=== PATIENT | male | born 1945 | race Two or more races ===

== ENCOUNTER 2018-02-04 07:28 | Inpatient (IN) | payer MEDICARE, OTHER, MEDICAID ==
[2018-02-04] MEDS: POLYMYXIN/BACITRACIN 1L IRRIG
[2018-02-04] MEDS ORDERED: MIDAZOLAM 1 MG/ML 2 ML INJ (07:41)
[2018-02-04] MEDS ORDERED: CEFAZOLIN 1 GM INJ (07:41)
[2018-02-04] MEDS ORDERED: PROPOFOL 20 ML (07:41)
[2018-02-04] MEDS ORDERED: ROPIVACAINE 0.5 % 30 ML VIAL (07:42)
[2018-02-04] MEDS ORDERED: LABETALOL HCL 20MG INJ IV (08:00)
[2018-02-04] MEDS ORDERED: DIPHENHYDRAMINE 50 MG INJ IV (08:00)
[2018-02-04] MEDS ORDERED: MEPERIDINE 25 MG INJ IV (08:00)
[2018-02-04] MEDS ORDERED: FENTAnyl 50 MCG/ML VIAL IV ×3 (08:00)
[2018-02-04] MEDS ORDERED: hydrALAzine 20 MG INJ IV (08:00)
[2018-02-04] MEDS ORDERED: OXYCODONE/ACETAMINOPHEN (5/325) TAB PO ×2 (08:00)
[2018-02-04] MEDS ORDERED: EPHEDrine SULFATE 50 MG/5 ML SYG IV (08:00)
[2018-02-04] MEDS ORDERED: METOCLOPRAMIDE 10 MG INJ IV (08:00)
[2018-02-04] MEDS ORDERED: HYDROmorphONE (0.2 MG/ML) 10ML SYG IV ×3 (08:00)
[2018-02-04] MEDS ORDERED: ONDANSETRON 4 MG INJ IV ×2 (08:00→14:30)
[2018-02-04 09:32] LABS: POTASSIUM 5.3 mmol/L (3.5-5.1)
[2018-02-04] MEDS ORDERED: PHENYLephrine (100 MCG/ML) 5ML SYG (10:03)
[2018-02-04] MEDS ORDERED: DEXAMETHASONE 4 MG/ML 1 ML INJ (10:19)
[2018-02-04] MEDS ORDERED: METOCLOPRAMIDE 10 MG INJ (10:19)
[2018-02-04] MEDS ORDERED: ONDANSETRON 4 MG INJ (10:19)
[2018-02-04] MEDS ORDERED: NALOXONE (0.4 MG/ML) INJ (10:45)
[2018-02-04] MEDS ORDERED: HYDROCODONE/APAP (5/325) TAB PO (14:30)
[2018-02-04] MEDS ORDERED: ACETAMINOPHEN 325 MG TAB PO (14:30)
[2018-02-04] MEDS ORDERED: NACL 0.9% 3 ML SYG IV (14:30)
[2018-02-04] MEDS ORDERED: morphine LIQ (10 MG/5 ML) CUP PO (14:30)
[2018-02-04] MEDS ORDERED: ZOLPIDEM 5 MG TAB PO (14:30)
[2018-02-04] MEDS ORDERED: DEXTROSE 50% 50 ML SYRINGE IV ×2 (15:00)
[2018-02-04] MEDS ORDERED: GLUCOSE GEL 15 GRAM TUBE PO ×2 (15:00)
[2018-02-04] MEDS ORDERED: GLUCAGON 1 MG INJ IM (15:00)
[2018-02-04] MEDS ORDERED: GLUCOSE GEL 15 GRAM TUBE BUCCAL (15:00)
[2018-02-04] MEDS: CALCIUM ACETATE 667 MG CAP PO (17:33)
[2018-02-04] MEDS: INSULIN ASPART [NOVOLOG] 3 ML PEN SC ×2 (17:41)
[2018-02-04] MEDS ORDERED: ATORVASTATIN 80 MG TAB PO (21:00)
[2018-02-04] MEDS ORDERED: INSULIN GLARGINE [LANtus] 3 ML PEN SC (21:00)
[2018-02-04] MEDS ORDERED: TAMSULOSIN (SR) 0.4 MG CAP PO (21:00)
[2018-02-05] MEDS ORDERED: ACCU-CHEK XX (02:00)
[2018-02-05] MEDS ORDERED: PANTOPRAZOLE (EC) 40 MG TAB PO (06:00)
[2018-02-05] MEDS ORDERED: ASPIRIN (EC) 81 MG TAB PO (09:00)
[2018-02-05] MEDS ORDERED: GABAPENTIN 300 MG CAP PO (09:00)
[2018-02-05] MEDS ORDERED: DOCUSATE SODIUM 100 MG CAP PO (09:00)
[2018-02-05] MEDS ORDERED: ALLOPURINOL 100 MG TAB PO (09:00)
[2018-02-05] MEDS ORDERED: MULTIVIT/CA CARB/B CMPLX/FA TAB PO (09:00)
[2018-02-05] MEDS ORDERED: CHOLECALCIFEROL 1,000 UNIT TAB PO (09:00)
[2018-02-05] MEDS ORDERED: CLOPIDOGREL 75 MG TAB PO (09:00)
[2018-02-05] MEDS ORDERED: ENOXAPARIN 40 MG/0.4 ML SYG SC (09:00)
[2018-02-05] MEDS ORDERED: FINASTERIDE 5 MG TAB PO (09:00)
[2018-02-05] MEDS ORDERED: FOLIC ACID 1 MG TAB PO (09:00)
== END 2018-02-04 19:05 | DRG 240 ==
LOC: SDS 07:28 → REC 12:42 → MS2 12:55
PROVIDERS: Internal Medicine
PROC: 0Y6M0Z9 Detachment at Right Foot, Partial 1st Ray, Open Approach (ICD-10-PCS; principal; 2018-02-04 07:30)
PROC: 0Y6M0ZB Detachment at Right Foot, Partial 2nd Ray, Open Approach (ICD-10-PCS; 2018-02-04 07:30)
PROC: 0Y6M0ZC Detachment at Right Foot, Partial 3rd Ray, Open Approach (ICD-10-PCS; 2018-02-04 07:30)
PROC: 0Y6M0ZD Detachment at Right Foot, Partial 4th Ray, Open Approach (ICD-10-PCS; 2018-02-04 07:30)
PROC: 0Y6M0ZF Detachment at Right Foot, Partial 5th Ray, Open Approach (ICD-10-PCS; 2018-02-04 07:30)
DX: E11.52 Type 2 diabetes mellitus with diabetic peripheral angiopathy with gangrene (principal); I96 Gangrene, not elsewhere classified; Z95.1 Presence of aortocoronary bypass graft; Z95.0 Presence of cardiac pacemaker; Z87.891 Personal history of nicotine dependence
CPT/HCPCS: 82962; 84132; 88307; 97163

== ENCOUNTER 2018-07-10 16:28 | Inpatient (IN) | payer MEDICARE, OTHER ==
[2018-07-10] MEDS: NA POLYST SULFON 15 GM/60 ML BTL PO (18:00)
[2018-07-10 18:29] LABS: ADD MAN DIFF? NO
[2018-07-10 18:38] LABS: WHITE BLOOD COUNT 10.2 10^3/ul (4.8-10.8)
[2018-07-10 18:38] LABS: ABNORMAL IP MESSAGE 1; BASOPHIL # 0.1 10^3/ul (0.0-0.1); BASOPHILS % 0.5 % (0.0-2.0); HEMATOCRIT 37.7 % (42.0-52.0); HEMOGLOBIN 12.1 g/dl (14.0-18.0); LYMPHOCYTES # 1.6 10^3/ul (0.8-2.9); LYMPHOCYTES % 15.7 % (15.0-51.0); MEAN CORPUSCULAR HEMOGLOBIN 29.4 pg (29.0-33.0); MEAN CORPUSCULAR HGB CONC 32.1 g/dl (32.0-37.0); MEAN CORPUSCULAR VOLUME 91.5 fl (82.0-101.0); MEAN PLATELET VOLUME 10.7 fl (7.4-10.4); MONOCYTE # 1.6 10^3/ul (0.3-0.9); MONOCYTES % 15.4 % (0.0-11.0); NEUTROPHIL # 6.9 10^3/ul (1.6-7.5); PLATELET COUNT 263 10^3/UL (140-415); POSITIVE DIFF @See below; RED BLOOD COUNT 4.12 10^6/ul (4.70-6.10); RED CELL DISTRIBUTION WIDTH 15.7 % (11.5-14.5)
[2018-07-10 18:52] LABS: INR 1.02; PROTIME 13.5 Sec (11.9-14.9); PT RATIO 1.1
[2018-07-10 18:53] LABS: PARTIAL THROMBOPLASTIN TIME 31.5 Sec (23.0-35.0)
[2018-07-10] MEDS: PIPER-TAZO 3.375 GM IV (PMX) 100 ML IVPB (18:53)
[2018-07-10 19:02] LABS: ANION GAP 25 (5-13); CALCIUM 10.3 mg/dl (8.4-10.2); CARBON DIOXIDE 18 mmol/L (21-31); CHLORIDE 91 mmol/L (97-110); CREATININE 13.02 mg/dl (0.61-1.24); GLUCOSE 256 mg/dl (70-220); SODIUM 134 mmol/L (135-144)
[2018-07-10 19:13] LABS: BLOOD UREA NITROGEN 123 mg/dl (7-20); POTASSIUM 7.2 mmol/L (3.5-5.1); TROPONIN-I 0.027 ng/ml (0.000-0.120)
[2018-07-10] MEDS ORDERED: ACETAMINOPHEN 325 MG TAB PO ×2 (19:30→21:00)
[2018-07-10] MEDS ORDERED: ONDANSETRON 4 MG INJ IV ×2 (19:30→21:00)
[2018-07-10] MEDS: NA BICARBONATE 8.4% 50 ML SYG IV (19:40)
[2018-07-10] MEDS: INSULIN REGULAR, HUMAN 100 UNIT/1 ML 3ML VIAL IVP (19:50)
[2018-07-10] MEDS: VANCOMYCIN 1 GM (PMX) 250 ML IVPB (19:53)
[2018-07-10] MEDS: ALBUTEROL 0.5% (NEB) 2.5 MG/0.5 ML AMP INH (20:21)
[2018-07-10] MEDS ORDERED: ALBUTEROL/IPRATROPIUM (NEB) 3 ML AMP HHN (21:00)
[2018-07-10] MEDS ORDERED: NACL 0.9% 3 ML SYG IV (21:00)
[2018-07-10] MEDS: DEXTROSE 50% 50 ML SYRINGE IV (21:00)
[2018-07-10] MEDS ORDERED: INSULIN GLARGINE [LANTus] (100 UNITS/ML) SYG SC (23:00)
[2018-07-10] MEDS ORDERED: GLUCAGON 1 MG INJ IM (23:00)
[2018-07-10] MEDS ORDERED: GLUCOSE GEL 15 GRAM TUBE BUCCAL (23:00)
[2018-07-10] MEDS ORDERED: GLUCOSE GEL 15 GRAM TUBE PO ×2 (23:00)
[2018-07-10] MEDS ORDERED: DEXTROSE 50% 50 ML SYRINGE IV ×2 (23:00)
[2018-07-10] MEDS: HYDROCODONE/APAP (5/325) TAB PO (23:12)
[2018-07-10] MEDS: TAMSULOSIN (SR) 0.4 MG CAP PO (23:12)
[2018-07-10 23:42] LABS: ANION GAP 24 (5-13); CALCIUM 9.7 mg/dl (8.4-10.2); CARBON DIOXIDE 18 mmol/L (21-31); CHLORIDE 93 mmol/L (97-110); CREATININE 12.89 mg/dl (0.61-1.24); GLUCOSE 215 mg/dl (70-220); SODIUM 135 mmol/L (135-144)
[2018-07-10 23:44] LABS: POTASSIUM 6.5 mmol/L (3.5-5.1)
[2018-07-10 23:50] LABS: BLOOD UREA NITROGEN 124 mg/dl (7-20)
[2018-07-11] MEDS: ATORVASTATIN 80 MG TAB PO ×2 (00:12→21:19)
[2018-07-11] MEDS: INSULIN ASPART [NOVOLOG] 3 ML PEN SC ×8 (00:21→21:00)
[2018-07-11] MEDS: INSULIN GLARGINE [LANTus] (100 UNITS/ML) SYG SC ×2 (00:21→22:07)
[2018-07-11] MEDS: ACCU-CHEK XX (02:36)
[2018-07-11] MEDS: PANTOPRAZOLE (EC) 40 MG TAB PO (05:07)
[2018-07-11] MEDS ORDERED: ALBUMIN HUMAN 25% 100 ML IV (05:30)
[2018-07-11] MEDS ORDERED: SODIUM CHLORIDE 0.9% 1L BAG IV (05:30)
[2018-07-11 06:18] LABS: ADD MAN DIFF? NO
[2018-07-11 06:23] LABS: WHITE BLOOD COUNT 9.7 10^3/ul (4.8-10.8)
[2018-07-11 06:23] LABS: ABNORMAL IP MESSAGE 1; BASOPHILS % 0.4 % (0.0-2.0); HEMATOCRIT 32.1 % (42.0-52.0); HEMOGLOBIN 10.5 g/dl (14.0-18.0); LYMPHOCYTES # 1.3 10^3/ul (0.8-2.9); LYMPHOCYTES % 13.6 % (15.0-51.0); MEAN CORPUSCULAR HEMOGLOBIN 29.6 pg (29.0-33.0); MEAN CORPUSCULAR HGB CONC 32.7 g/dl (32.0-37.0); MEAN CORPUSCULAR VOLUME 90.4 fl (82.0-101.0); MEAN PLATELET VOLUME 10.9 fl (7.4-10.4); MONOCYTE # 1.6 10^3/ul (0.3-0.9); MONOCYTES % 16.9 % (0.0-11.0); NEUTROPHIL # 6.7 10^3/ul (1.6-7.5); NEUTROPHILS % 68.9 % (39.0-77.0); PLATELET COUNT 233 10^3/UL (140-415); POSITIVE DIFF @See below; RED BLOOD COUNT 3.55 10^6/ul (4.70-6.10); RED CELL DISTRIBUTION WIDTH 15.7 % (11.5-14.5)
[2018-07-11 06:40] LABS: HEMOGLOBIN A1C 8.3 % (0-5.9)
[2018-07-11 06:42] LABS: LACTIC ACID 1.2 mmol/L (0.5-2.0)
[2018-07-11] MEDS ORDERED: INSULIN LISPRO 8 UNIT SQ (07:00)
[2018-07-11 07:04] LABS: ALANINE AMINOTRANSFERASE 16 IU/L (13-69); ALBUMIN 2.8 g/dl (3.3-4.9); ALKALINE PHOSPHATASE 155 IU/L (42-121); ANION GAP 24 (5-13); ASPARTATE AMINO TRANSFERASE 20 IU/L (15-46); CARBON DIOXIDE 19 mmol/L (21-31); CHLORIDE 92 mmol/L (97-110); CHOL/HDL RATIO 3.2 RATIO; CHOLESTEROL 101 mg/dl (100-200); CREATININE 12.52 mg/dl (0.61-1.24); GLUCOSE 207 mg/dl (70-220); HDL CHOLESTEROL 31 mg/dl (31-75); LDL CHOLESTEROL,CALCULATED 49 mg/dl; MAGNESIUM 2.3 mg/dl (1.7-2.5); SODIUM 135 mmol/L (135-144); TOTAL PROTEIN 5.9 g/dl (6.1-8.1); TRIGLYCERIDES 106 mg/dl (0-149)
[2018-07-11 07:27] LABS: POTASSIUM 6.8 mmol/L (3.5-5.1)
[2018-07-11] MEDS: CALCIUM ACETATE 667 MG CAP PO ×3 (07:56→17:14)
[2018-07-11 08:20] LABS: HEPATITIS B SURFACE ANTIGEN NEGATIVE (NEGATIVE)
[2018-07-11 08:29] LABS: BLOOD UREA NITROGEN 132 mg/dl (7-20)
[2018-07-11] MEDS: GABAPENTIN 300 MG CAP PO (11:22)
[2018-07-11] MEDS: ALLOPURINOL 100 MG TAB PO (11:23)
[2018-07-11] MEDS: ASPIRIN 81 MG TAB PO (11:23)
[2018-07-11] MEDS: FINASTERIDE 5 MG TAB PO (11:23)
[2018-07-11] MEDS: MULTIVIT/CA CARB/B CMPLX/FA TAB PO (11:23)
[2018-07-11] MEDS: DOCUSATE SODIUM 100 MG CAP PO (11:24)
[2018-07-11] MEDS: FOLIC ACID 1 MG TAB PO (11:24)
[2018-07-11] MEDS: CHOLECALCIFEROL 1,000 UNIT TAB PO (11:25)
[2018-07-11] MEDS: CLOPIDOGREL 75 MG TAB PO (11:25)
[2018-07-11] MEDS: HYDROCODONE/APAP (5/325) TAB PO ×2 (11:25→20:49)
[2018-07-11] MEDS ORDERED: INSULIN GLARGINE [LANTus] (100 UNITS/ML) SYG SC ×2 (21:00)
[2018-07-11] MEDS: TAMSULOSIN (SR) 0.4 MG CAP PO (21:19)
[2018-07-12] MEDS: ACCU-CHEK XX (01:48)
[2018-07-12] MEDS: PANTOPRAZOLE (EC) 40 MG TAB PO (05:54)
[2018-07-12 06:19] LABS: ADD MAN DIFF? NO
[2018-07-12 06:42] LABS: ABNORMAL IP MESSAGE 1; BASOPHIL # 0.1 10^3/ul (0.0-0.1); BASOPHILS % 0.6 % (0.0-2.0); HEMATOCRIT 34.2 % (42.0-52.0); HEMOGLOBIN 10.9 g/dl (14.0-18.0); LYMPHOCYTES # 1.3 10^3/ul (0.8-2.9); LYMPHOCYTES % 13.5 % (15.0-51.0); MEAN CORPUSCULAR HEMOGLOBIN 29.3 pg (29.0-33.0); MEAN CORPUSCULAR HGB CONC 31.9 g/dl (32.0-37.0); MEAN CORPUSCULAR VOLUME 91.9 fl (82.0-101.0); MONOCYTE # 1.7 10^3/ul (0.3-0.9); MONOCYTES % 18.1 % (0.0-11.0); NEUTROPHIL # 6.4 10^3/ul (1.6-7.5); NEUTROPHILS % 67.6 % (39.0-77.0); PLATELET COUNT 230 10^3/UL (140-415); POSITIVE DIFF @See below; RED BLOOD COUNT 3.72 10^6/ul (4.70-6.10); RED CELL DISTRIBUTION WIDTH 15.9 % (11.5-14.5)
[2018-07-12 06:42] LABS: WHITE BLOOD COUNT 9.4 10^3/ul (4.8-10.8)
[2018-07-12 07:17] LABS: ANION GAP 19 (5-13); BLOOD UREA NITROGEN 81 mg/dl (7-20); CALCIUM 9.4 mg/dl (8.4-10.2); CARBON DIOXIDE 23 mmol/L (21-31); CHLORIDE 98 mmol/L (97-110); CREATININE 9.38 mg/dl (0.61-1.24); GLUCOSE 131 mg/dl (70-220); POTASSIUM 5.6 mmol/L (3.5-5.1); SODIUM 140 mmol/L (135-144)
[2018-07-12] MEDS: INSULIN ASPART [NOVOLOG] 3 ML PEN SC ×7 (07:46→20:17)
[2018-07-12] MEDS: HYDROCODONE/APAP (5/325) TAB PO ×2 (07:50→17:14)
[2018-07-12] MEDS: ASPIRIN 81 MG TAB PO (08:06)
[2018-07-12] MEDS: FINASTERIDE 5 MG TAB PO (08:06)
[2018-07-12] MEDS: CALCIUM ACETATE 667 MG CAP PO ×3 (08:06→17:15)
[2018-07-12] MEDS: MULTIVIT/CA CARB/B CMPLX/FA TAB PO (08:07)
[2018-07-12] MEDS: CHOLECALCIFEROL 1,000 UNIT TAB PO (08:07)
[2018-07-12] MEDS: CLOPIDOGREL 75 MG TAB PO (08:07)
[2018-07-12] MEDS: GABAPENTIN 300 MG CAP PO (08:07)
[2018-07-12] MEDS: ALLOPURINOL 100 MG TAB PO (08:07)
[2018-07-12] MEDS: DOCUSATE SODIUM 100 MG CAP PO (08:07)
[2018-07-12] MEDS: FOLIC ACID 1 MG TAB PO (08:08)
[2018-07-12] MEDS ORDERED: PENDING SANTYL ORDER FOR WOUND CARE XX (11:00)
[2018-07-12] MEDS: SODIUM HYPOCHLORITE (1/40) 1 APPLIC BTL IRR ×2 (11:27→20:10)
[2018-07-12] MEDS: SENNA TAB PO ×2 (11:27→20:09)
[2018-07-12] MEDS: TAMSULOSIN (SR) 0.4 MG CAP PO (20:09)
[2018-07-12] MEDS: ATORVASTATIN 80 MG TAB PO (20:09)
[2018-07-12] MEDS: INSULIN GLARGINE [LANTus] (100 UNITS/ML) SYG SC (20:16)
[2018-07-13] MEDS: ACCU-CHEK XX (02:00)
[2018-07-13] MEDS: PANTOPRAZOLE (EC) 40 MG TAB PO (06:19)
[2018-07-13] MEDS: INSULIN ASPART [NOVOLOG] 3 ML PEN SC ×7 (07:41→20:47)
[2018-07-13] MEDS: CALCIUM ACETATE 667 MG CAP PO ×3 (07:41→17:35)
[2018-07-13] MEDS: SODIUM HYPOCHLORITE (1/40) 1 APPLIC BTL IRR ×2 (07:42→20:46)
[2018-07-13] MEDS: HYDROCODONE/APAP (5/325) TAB PO ×2 (07:51→13:55)
[2018-07-13] MEDS: ASPIRIN 81 MG TAB PO ×2 (07:52→10:55)
[2018-07-13] MEDS: DOCUSATE SODIUM 100 MG CAP PO ×2 (07:52→10:55)
[2018-07-13] MEDS: CLOPIDOGREL 75 MG TAB PO ×2 (07:53→10:55)
[2018-07-13] MEDS: GABAPENTIN 300 MG CAP PO (07:53)
[2018-07-13] MEDS: FOLIC ACID 1 MG TAB PO ×2 (07:53→10:55)
[2018-07-13] MEDS: MULTIVIT/CA CARB/B CMPLX/FA TAB PO ×2 (07:54→10:55)
[2018-07-13] MEDS: ALLOPURINOL 100 MG TAB PO ×2 (07:54→10:56)
[2018-07-13] MEDS: SENNA TAB PO ×3 (07:54→20:46)
[2018-07-13] MEDS: CHOLECALCIFEROL 1,000 UNIT TAB PO ×2 (07:54→10:56)
[2018-07-13] MEDS: FINASTERIDE 5 MG TAB PO ×2 (07:54→10:55)
[2018-07-13] MEDS ORDERED: HEPARIN 5,000 UNIT/0.5 ML VIAL (12:24)
[2018-07-13] MEDS: HEPARIN SODIUM 5,000 UNIT/ML VIAL SC ×2 (12:30→20:46)
[2018-07-13] MEDS: TAMSULOSIN (SR) 0.4 MG CAP PO (20:45)
[2018-07-13] MEDS: ATORVASTATIN 80 MG TAB PO (20:45)
[2018-07-13] MEDS: INSULIN GLARGINE [LANTus] (100 UNITS/ML) SYG SC (20:53)
[2018-07-14] MEDS: ACCU-CHEK XX (01:07)
[2018-07-14] MEDS: HYDROCODONE/APAP (5/325) TAB PO ×3 (04:07→18:58)
[2018-07-14] MEDS: PANTOPRAZOLE (EC) 40 MG TAB PO (05:39)
[2018-07-14 06:45] LABS: ANION GAP 18 (5-13); BLOOD UREA NITROGEN 75 mg/dl (7-20); CALCIUM 9.3 mg/dl (8.4-10.2); CARBON DIOXIDE 24 mmol/L (21-31); CHLORIDE 94 mmol/L (97-110); CREATININE 8.95 mg/dl (0.61-1.24); GLUCOSE 171 mg/dl (70-220); SODIUM 136 mmol/L (135-144)
[2018-07-14] MEDS: INSULIN ASPART [NOVOLOG] 3 ML PEN SC ×7 (07:44→21:12)
[2018-07-14] MEDS: FINASTERIDE 5 MG TAB PO (08:56)
[2018-07-14] MEDS: SENNA TAB PO ×2 (08:56→20:52)
[2018-07-14] MEDS: ASPIRIN 81 MG TAB PO (08:56)
[2018-07-14] MEDS: CHOLECALCIFEROL 1,000 UNIT TAB PO (08:56)
[2018-07-14] MEDS: CLOPIDOGREL 75 MG TAB PO (08:57)
[2018-07-14] MEDS: DOCUSATE SODIUM 100 MG CAP PO (08:57)
[2018-07-14] MEDS: CALCIUM ACETATE 667 MG CAP PO ×3 (08:57→18:20)
[2018-07-14] MEDS: MULTIVIT/CA CARB/B CMPLX/FA TAB PO (08:57)
[2018-07-14] MEDS: ALLOPURINOL 100 MG TAB PO (08:57)
[2018-07-14] MEDS: SODIUM HYPOCHLORITE (1/40) 1 APPLIC BTL IRR ×2 (08:58→20:56)
[2018-07-14] MEDS: FOLIC ACID 1 MG TAB PO (08:58)
[2018-07-14] MEDS: HEPARIN SODIUM 5,000 UNIT/ML VIAL SC ×2 (08:59→21:13)
[2018-07-14] MEDS: GABAPENTIN 300 MG CAP PO ×2 (08:59→20:52)
[2018-07-14] MEDS: NA POLYST SULFON 15 GM/60 ML BTL PO (15:14)
[2018-07-14] MEDS ORDERED: FENTAnyl 50 MCG/ML VIAL (16:35)
[2018-07-14] MEDS ORDERED: MIDAZOLAM 1 MG/ML 2 ML INJ ×2 (16:35→16:38)
[2018-07-14] MEDS ORDERED: PHENYLephrine (100 MCG/ML) 5ML SYG (16:41)
[2018-07-14] MEDS ORDERED: HYDROmorphONE 1 MG/5 ML IV SYRINGE IV ×3 (17:00)
[2018-07-14] MEDS ORDERED: ONDANSETRON 4 MG INJ IV (17:00)
[2018-07-14] MEDS: LIDOCAINE 2% (MDV) 20 ML INJ (17:41)
[2018-07-14] MEDS: TOBRAMYCIN 1.2 GM POWDER (17:42)
[2018-07-14] MEDS ORDERED: HEPARIN 5,000 UNIT/0.5 ML VIAL (20:49)
[2018-07-14] MEDS: ATORVASTATIN 80 MG TAB PO (20:52)
[2018-07-14] MEDS: TAMSULOSIN (SR) 0.4 MG CAP PO (20:52)
[2018-07-14] MEDS: INSULIN GLARGINE [LANTus] (100 UNITS/ML) SYG SC (21:12)
[2018-07-15] MEDS: HYDROCODONE/APAP (5/325) TAB PO ×4 (01:12→20:48)
[2018-07-15] MEDS: ACCU-CHEK XX (01:58)
[2018-07-15] MEDS: PANTOPRAZOLE (EC) 40 MG TAB PO (05:17)
[2018-07-15] MEDS: INSULIN ASPART [NOVOLOG] 3 ML PEN SC ×7 (07:35→20:48)
[2018-07-15] MEDS ORDERED: HEPARIN 5,000 UNIT/0.5 ML VIAL ×2 (07:43→20:38)
[2018-07-15] MEDS: SENNA TAB PO ×2 (07:47→20:46)
[2018-07-15] MEDS: MULTIVIT/CA CARB/B CMPLX/FA TAB PO (07:47)
[2018-07-15] MEDS: ALLOPURINOL 100 MG TAB PO (07:47)
[2018-07-15] MEDS: ASPIRIN 81 MG TAB PO (07:47)
[2018-07-15] MEDS: CHOLECALCIFEROL 1,000 UNIT TAB PO (07:47)
[2018-07-15] MEDS: FINASTERIDE 5 MG TAB PO (07:47)
[2018-07-15] MEDS: CLOPIDOGREL 75 MG TAB PO (07:47)
[2018-07-15] MEDS: DOCUSATE SODIUM 100 MG CAP PO (07:47)
[2018-07-15] MEDS: CALCIUM ACETATE 667 MG CAP PO ×3 (07:48→17:11)
[2018-07-15] MEDS: NA POLYST SULFON 15 GM/60 ML BTL PO (07:48)
[2018-07-15] MEDS: GABAPENTIN 300 MG CAP PO ×2 (07:48→20:46)
[2018-07-15] MEDS: HEPARIN SODIUM 5,000 UNIT/ML VIAL SC ×2 (07:56→21:04)
[2018-07-15] MEDS: SODIUM HYPOCHLORITE (1/40) 1 APPLIC BTL IRR ×2 (09:00→20:47)
[2018-07-15] MEDS: FOLIC ACID 1 MG TAB PO (11:55)
[2018-07-15 12:58] LABS: ANION GAP 14 (5-13); BLOOD UREA NITROGEN 41 mg/dl (7-20); CALCIUM 8.9 mg/dl (8.4-10.2); CARBON DIOXIDE 31 mmol/L (21-31); CHLORIDE 91 mmol/L (97-110); CREATININE 6.22 mg/dl (0.61-1.24); GLUCOSE 112 mg/dl (70-220); POTASSIUM 4.8 mmol/L (3.5-5.1); SODIUM 136 mmol/L (135-144)
[2018-07-15] MEDS: ZYVOX 600 MG TAB PO ×2 (13:32→20:46)
[2018-07-15] MEDS: CEFTRIAXONE 1 GM/50 ML (PMX) 50 ML IVPB (13:33)
[2018-07-15] MEDS: ATORVASTATIN 80 MG TAB PO (20:46)
[2018-07-15] MEDS: TAMSULOSIN (SR) 0.4 MG CAP PO (20:46)
[2018-07-15] MEDS: INSULIN GLARGINE [LANTus] (100 UNITS/ML) SYG SC (21:04)
[2018-07-16] MEDS: ACCU-CHEK XX (01:30)
[2018-07-16] MEDS: PANTOPRAZOLE (EC) 40 MG TAB PO (05:15)
[2018-07-16] MEDS: HYDROCODONE/APAP (5/325) TAB PO ×3 (05:15→21:06)
[2018-07-16 06:13] LABS: ADD MAN DIFF? NO
[2018-07-16 06:20] LABS: WHITE BLOOD COUNT 6.9 10^3/ul (4.8-10.8)
[2018-07-16 06:20] LABS: BASOPHILS % 0.4 % (0.0-2.0); HEMATOCRIT 28.2 % (42.0-52.0); LYMPHOCYTES # 1.7 10^3/ul (0.8-2.9); LYMPHOCYTES % 23.9 % (15.0-51.0); MEAN CORPUSCULAR HEMOGLOBIN 29.2 pg (29.0-33.0); MEAN CORPUSCULAR HGB CONC 31.9 g/dl (32.0-37.0); MEAN CORPUSCULAR VOLUME 91.6 fl (82.0-101.0); MEAN PLATELET VOLUME 10.8 fl (7.4-10.4); MONOCYTE # 1.2 10^3/ul (0.3-0.9); MONOCYTES % 16.7 % (0.0-11.0); NEUTROPHIL # 4.1 10^3/ul (1.6-7.5); NEUTROPHILS % 58.7 % (39.0-77.0); PLATELET COUNT 226 10^3/UL (140-415); RED BLOOD COUNT 3.08 10^6/ul (4.70-6.10); RED CELL DISTRIBUTION WIDTH 15.6 % (11.5-14.5)
[2018-07-16 06:38] LABS: ANION GAP 15 (5-13); BLOOD UREA NITROGEN 52 mg/dl (7-20); CALCIUM 8.4 mg/dl (8.4-10.2); CARBON DIOXIDE 29 mmol/L (21-31); CHLORIDE 91 mmol/L (97-110); CREATININE 6.92 mg/dl (0.61-1.24); GLUCOSE 142 mg/dl (70-220); POTASSIUM 4.7 mmol/L (3.5-5.1); SODIUM 135 mmol/L (135-144)
[2018-07-16] MEDS: SODIUM HYPOCHLORITE (1/40) 1 APPLIC BTL IRR ×2 (07:36→20:58)
[2018-07-16] MEDS ORDERED: HEPARIN 5,000 UNIT/0.5 ML VIAL ×2 (07:47→20:27)
[2018-07-16] MEDS: ASPIRIN 81 MG TAB PO (07:53)
[2018-07-16] MEDS: ZYVOX 600 MG TAB PO (07:53)
[2018-07-16] MEDS: MULTIVIT/CA CARB/B CMPLX/FA TAB PO (07:53)
[2018-07-16] MEDS: CLOPIDOGREL 75 MG TAB PO (07:53)
[2018-07-16] MEDS: FINASTERIDE 5 MG TAB PO (07:54)
[2018-07-16] MEDS: DOCUSATE SODIUM 100 MG CAP PO (07:54)
[2018-07-16] MEDS: ALLOPURINOL 100 MG TAB PO (07:54)
[2018-07-16] MEDS: FOLIC ACID 1 MG TAB PO (07:54)
[2018-07-16] MEDS: GABAPENTIN 300 MG CAP PO ×2 (07:54→20:56)
[2018-07-16] MEDS: CHOLECALCIFEROL 1,000 UNIT TAB PO (07:54)
[2018-07-16] MEDS: CALCIUM ACETATE 667 MG CAP PO ×3 (07:55→17:31)
[2018-07-16] MEDS: NA POLYST SULFON 15 GM/60 ML BTL PO (07:57)
[2018-07-16] MEDS: INSULIN ASPART [NOVOLOG] 3 ML PEN SC ×7 (07:59→21:00)
[2018-07-16] MEDS: HEPARIN SODIUM 5,000 UNIT/ML VIAL SC ×2 (07:59→21:04)
[2018-07-16] MEDS: SENNA TAB PO ×2 (08:03→21:00)
[2018-07-16] MEDS: LEVOFLOXACIN 750 MG TABLET PO (12:45)
[2018-07-16] MEDS: AMPICILLIN 1 GM/NS (PMX) 50 ML IVPB ×2 (13:30→22:51)
[2018-07-16] MEDS: FERROUS SULFATE (SR) 142 MG TAB PO ×2 (15:00→20:57)
[2018-07-16] MEDS: EPOETIN 4000 UNITS/1 ML INJ (ESRD) SC (17:31)
[2018-07-16] MEDS: ATORVASTATIN 80 MG TAB PO (20:56)
[2018-07-16] MEDS: TAMSULOSIN (SR) 0.4 MG CAP PO (20:57)
[2018-07-16] MEDS: INSULIN GLARGINE [LANTus] (100 UNITS/ML) SYG SC (21:02)
[2018-07-17] MEDS: ACCU-CHEK XX (02:00)
[2018-07-17] MEDS: CALCIUM CARBONATE 500 MG CHEW TAB PO (03:35)
[2018-07-17] MEDS: PANTOPRAZOLE (EC) 40 MG TAB PO (06:19)
[2018-07-17] MEDS: SODIUM HYPOCHLORITE (1/40) 1 APPLIC BTL IRR (07:48)
[2018-07-17] MEDS: INSULIN ASPART [NOVOLOG] 3 ML PEN SC ×7 (07:48→17:11)
[2018-07-17] MEDS: CALCIUM ACETATE 667 MG CAP PO ×3 (08:49→16:55)
[2018-07-17] MEDS: HEPARIN SODIUM 5,000 UNIT/ML VIAL SC (09:00)
[2018-07-17] MEDS ORDERED: HEPARIN 5,000 UNIT/0.5 ML VIAL (09:15)
[2018-07-17] MEDS: FERROUS SULFATE (SR) 142 MG TAB PO (09:19)
[2018-07-17] MEDS: CLOPIDOGREL 75 MG TAB PO (09:19)
[2018-07-17] MEDS: GABAPENTIN 300 MG CAP PO (09:19)
[2018-07-17] MEDS: ALLOPURINOL 100 MG TAB PO (09:19)
[2018-07-17] MEDS: CHOLECALCIFEROL 1,000 UNIT TAB PO (09:19)
[2018-07-17] MEDS: MULTIVIT/CA CARB/B CMPLX/FA TAB PO (09:19)
[2018-07-17] MEDS: FINASTERIDE 5 MG TAB PO (09:19)
[2018-07-17] MEDS: ASPIRIN 81 MG TAB PO (09:20)
[2018-07-17] MEDS: DOCUSATE SODIUM 100 MG CAP PO (09:20)
[2018-07-17] MEDS: HYDROCODONE/APAP (5/325) TAB PO (09:20)
[2018-07-17] MEDS: FOLIC ACID 1 MG TAB PO (09:20)
[2018-07-17] MEDS: SENNA TAB PO (09:21)
[2018-07-17] MEDS: AMPICILLIN 1 GM/NS (PMX) 50 ML IVPB (09:31)
[2018-07-17] MEDS: LIDOCAINE 1% (MPF) 5 ML VIAL SC (11:45)
[2018-07-18] MEDS ORDERED: LEVOFLOXACIN 500 MG TAB PO (06:00)
== END 2018-07-17 19:42 | DRG 628 ==
LOC: E/R 16:28 → 6WM 19:18
PROC: 0QBL0ZX Excision of Right Tarsal, Open Approach, Diagnostic (ICD-10-PCS; principal; 2018-07-14 16:32)
PROC: 0JUQ0KZ Supplement of Right Foot Subcutaneous Tissue and Fascia with Nonautologous Tissue Substitute, Open Approach (ICD-10-PCS; 2018-07-14 16:32)
PROC: 0KBV0ZZ Excision of Right Foot Muscle, Open Approach (ICD-10-PCS; 2018-07-14 16:32)
PROC: 5A1D70Z Performance of Urinary Filtration, Intermittent, Less than 6 Hours Per Day (ICD-10-PCS; 2018-07-14 16:32)
PROC: 02HV33Z Insertion of Infusion Device into Superior Vena Cava, Percutaneous Approach (ICD-10-PCS; 2018-07-14 16:32)
DX: E87.5 Hyperkalemia (principal); N18.6 End stage renal disease; L03.115 Cellulitis of right lower limb; I12.0 Hypertensive chronic kidney disease with stage 5 chronic kidney disease or end stage renal disease; M86.671 Other chronic osteomyelitis, right ankle and foot; E11.69 Type 2 diabetes mellitus with other specified complication; E11.621 Type 2 diabetes mellitus with foot ulcer; E11.65 Type 2 diabetes mellitus with hyperglycemia; E11.22 Type 2 diabetes mellitus with diabetic chronic kidney disease; Z99.2 Dependence on renal dialysis; Z91.15 Patient's noncompliance with renal dialysis; Z95.1 Presence of aortocoronary bypass graft; Z95.0 Presence of cardiac pacemaker; Z87.891 Personal history of nicotine dependence; Z99.3 Dependence on wheelchair; Z91.11 Patient's noncompliance with dietary regimen; M10.9 Gout, unspecified; Z85.038 Personal history of other malignant neoplasm of large intestine; L97.519 Non-pressure chronic ulcer of other part of right foot with unspecified severity; B95.2 Enterococcus as the cause of diseases classified elsewhere; B96.89 Other specified bacterial agents as the cause of diseases classified elsewhere; Z16.21 Resistance to vancomycin
CPT/HCPCS: 36415; 36569; 71045; 73620; 74018; 76937; 80048; 80053; 80061; 82962; 83036; 83605; 83735; 84484; 85025; 85610; 85730; 87040; 87070; 87081; 87340; 88304; 88311; 90935; 93005; 94664; 96374; 97110; 97161; 97530; 99291-25

== ENCOUNTER 2018-08-05 06:00 | Day surgery (SDC) | payer MEDICARE, OTHER ==
[2018-08-05] MEDS ORDERED: LIDOCAINE 1% (STERILE-PAK) 30 ML INJ (06:54)
[2018-08-05] MEDS ORDERED: MINERAL OIL LIGHT 10 ML VIAL (06:54)
[2018-08-05 07:13] LABS: ADD MAN DIFF? NO
[2018-08-05 07:16] LABS: WHITE BLOOD COUNT 7.5 10^3/ul (4.8-10.8)
[2018-08-05 07:16] LABS: BASOPHILS % 0.4 % (0.0-2.0); HEMATOCRIT 30.8 % (42.0-52.0); HEMOGLOBIN 9.5 g/dl (14.0-18.0); LYMPHOCYTES # 1.2 10^3/ul (0.8-2.9); LYMPHOCYTES % 15.8 % (15.0-51.0); MEAN CORPUSCULAR HEMOGLOBIN 29.2 pg (29.0-33.0); MEAN CORPUSCULAR HGB CONC 30.8 g/dl (32.0-37.0); MEAN CORPUSCULAR VOLUME 94.8 fl (82.0-101.0); MONOCYTE # 1.2 10^3/ul (0.3-0.9); MONOCYTES % 16.4 % (0.0-11.0); PLATELET COUNT 240 10^3/UL (140-415); RED BLOOD COUNT 3.25 10^6/ul (4.70-6.10); RED CELL DISTRIBUTION WIDTH 18.8 % (11.5-14.5)
[2018-08-05 07:23] LABS: HOLD TRANSMISSIONS 1
[2018-08-05] MEDS ORDERED: FENTAnyl 50 MCG/ML VIAL (07:27)
[2018-08-05] MEDS ORDERED: PROPOFOL 40 ML (07:27)
[2018-08-05] MEDS ORDERED: LIDOCAINE 2% (SDV) 5 ML INJ (07:27)
[2018-08-05] MEDS ORDERED: EPHEDrine SULFATE 50 MG/5 ML SYG (07:27)
[2018-08-05] MEDS ORDERED: CEFAZOLIN 1 GM INJ (07:28)
[2018-08-05] MEDS ORDERED: LABETALOL HCL 20MG INJ IV (07:30)
[2018-08-05] MEDS ORDERED: morphine (1 MG/ML) 10ML SYRINGE IV (07:30)
[2018-08-05] MEDS ORDERED: hydrALAzine 20 MG INJ IV (07:30)
[2018-08-05] MEDS ORDERED: ATROPINE 1 MG/10 ML SYRINGE IV (07:30)
[2018-08-05] MEDS ORDERED: ALBUTEROL 0.083% (NEB) 2.5 MG/3 ML AMP HHN (07:30)
[2018-08-05] MEDS ORDERED: PHENYLephrine (100 MCG/ML) 5ML SYG ×2 (07:30→08:04)
[2018-08-05] MEDS ORDERED: HYDROmorphONE 1 MG/5 ML IV SYRINGE IV (07:30)
[2018-08-05] MEDS ORDERED: FENTAnyl 50 MCG/ML VIAL IV (07:30)
[2018-08-05] MEDS ORDERED: EPHEDrine SULFATE 50 MG/5 ML SYG IV (07:30)
[2018-08-05] MEDS ORDERED: DIPHENHYDRAMINE 50 MG INJ IV (07:30)
[2018-08-05] MEDS ORDERED: ONDANSETRON 4 MG INJ IV (07:30)
[2018-08-05 07:35] LABS: INR 1.09; PROTIME 14.3 Sec (11.9-14.9); PT RATIO 1.1
[2018-08-05] MEDS ORDERED: ETOMIDATE 20 MG INJ (07:35)
[2018-08-05 07:36] LABS: ALANINE AMINOTRANSFERASE 8 IU/L (13-69); ALBUMIN 4.1 g/dl (3.3-4.9); ALBUMIN/GLOBULIN RATIO 1.36; ALKALINE PHOSPHATASE 169 IU/L (42-121); ANION GAP 15 (5-13); ASPARTATE AMINO TRANSFERASE 25 IU/L (15-46); BLOOD UREA NITROGEN 41 mg/dl (7-20); CALCIUM 8.9 mg/dl (8.4-10.2); CARBON DIOXIDE 32 mmol/L (21-31); CHLORIDE 93 mmol/L (97-110); GLUCOSE 198 mg/dl (70-220); POTASSIUM 4.6 mmol/L (3.5-5.1); SODIUM 140 mmol/L (135-144); TOTAL PROTEIN 7.1 g/dl (6.1-8.1)
[2018-08-05] MEDS: LIDOCAINE 1%/EPI 30 ML INJ (08:34)
[2018-08-05] MEDS: THROMBIN 5000 UNIT VIAL (08:35)
[2018-08-05] MEDS: OXYCODONE/ACETAMINOPHEN (5/325) TAB PO (09:16)
== END 2018-08-05 10:34 ==
LOC: SDS 06:00
DX: E11.621 Type 2 diabetes mellitus with foot ulcer (principal); Z89.431 Acquired absence of right foot; I12.0 Hypertensive chronic kidney disease with stage 5 chronic kidney disease or end stage renal disease; N18.6 End stage renal disease; Z99.2 Dependence on renal dialysis; I73.9 Peripheral vascular disease, unspecified; I25.10 Atherosclerotic heart disease of native coronary artery without angina pectoris; I25.2 Old myocardial infarction
CPT/HCPCS: 11043; 71045; 80053; 82962; 85025; 85610; 85730; 87070; 87075; 87102; 87116; 93005